=== PATIENT | male | born 1940 | race Caucasian/White ===

== ENCOUNTER 2019-11-20 10:19 | Emergency (ER) | payer MEDICARE, OTHER ==
[~2019-11-20] VITALS: Ht 177.8 cm; Wt 77.3 kg
[2019-11-20 12:19] VITALS: BP 139/79
[2019-11-20] MEDS ORDERED: NYST1000 PO (12:44)
--- NOTE | 2019-11-20 12:59 | NUR ---
PT HAS BEEN EVALUATED BY PROVIDER, ABLE TO SWALLOW WATER WITHOUT DIFFICULTY, Nettie PEOPLES OPTICIAN APPRENTICE SAID PT IS OK TO DISCHARGE
== END 2019-11-20 13:02 | disposition home or self-care (01) ==
LOC: ER 10:19
DX: B37.9 Candidiasis, unspecified (principal); J02.9 Acute pharyngitis, unspecified; E11.9 Type 2 diabetes mellitus without complications; Z79.899 Other long term (current) drug therapy
CPT/HCPCS: 87081; 87880; 99283